=== PATIENT | male | born 2000 | race Caucasian/White ===

== ENCOUNTER 2024-10-31 10:18 | Emergency (ER) | payer SELFPAY ==
[~2024-10-31] VITALS: Ht 177.8 cm; Wt 60.0 kg
[2024-10-31 10:21] VITALS: O2SAT 98
[2024-10-31] MEDS: SODIUM CHLORIDE 0.9% 1,000 ML IV ONE (10:46)
[2024-10-31 11:35] LABS: BASOPHILS % 0.7 % (0.0-2.0); EOSINOPHILS % 5.1 % (0.0-5.0); HEMATOCRIT. 43.1 % (42.0-52.0); HEMOGLOBIN. 14.7 g/dL (14.0-18.0); LYMPHOCYTES % 11.1 % (20.0-50.0); MEAN CORPUSCULAR HEMOGLOBIN 31.9 pg (28.0-32.0); MEAN CORPUSCULAR HGB CONC 34.1 g/dL (31.0-37.0); MEAN CORPUSCULAR VOLUME 93.5 fL (80.0-94.0); MEAN PLATELET VOLUME 7.1 fl (7.4-10.4); MONOCYTES % 6.5 % (2.0-8.0); NEUTROPHILS % 76.6 % (40.0-76.0); PLATELET 366 x1000/uL (130-400); RED BLOOD CELL COUNT 4.61 mill/uL (4.7-6.1); RED CELL DISTRIBUTION WIDTH 13.8 % (11.6-14.6); WHITE BLOOD COUNT 6.6 x1000/uL (4.5-11.0)
[2024-10-31 11:37] LABS: CHLORIDE 106 mEq/L (98-107); POTASSIUM 4.3 mEq/L (3.5-5.1); SODIUM 139 mEq/L (136-145)
[2024-10-31 11:38] LABS: CARBON DIOXIDE 26 mEq/L (21-32)
[2024-10-31 11:39] LABS: CALCIUM 9.7 mg/dL (8.7-10.4)
[2024-10-31 11:43] LABS: CREATININE 0.8 mg/dL (0.6-1.3); GLUCOSE 99 mg/dL (70-105); UREA NITROGEN BLOOD 9 mg/dL (9-23)
[2024-10-31 12:18] LABS: TROPONIN I HIGH SENSITIVITY < 4 ng/L (3.0-53)
[2024-10-31 12:36] VITALS: BP 133/79; PULSE 81; RESP 14; TEMP 36.7; O2SAT 99
== END 2024-10-31 12:36 | disposition home or self-care (01) ==
LOC: ER 10:18
DX: R55 Syncope and collapse (principal)
CPT/HCPCS: 99284; 96360; 80048; 85025; 84484; 36415; 93005; J7030